=== PATIENT | male | born 1980 | race Hispanic/Latino ===

== ENCOUNTER → 2017-05-19 | Outpatient (CLI) | payer OTHER ==
--- NOTE | 2017-05-20 20:22 | Diagnostic Imaging Report ---
PROCEDURE: US Abdomen, limited. TECHNIQUE: Multiple real-time grayscale images were obtained over the abdomen in various projections. INDICATION: Abdominal pain, palpable mass. FINDINGS: To the left of the umbilicus about 12 cm there is an area of palpable lump which appears to be centered in the subcutaneous fat measuring 2.6 x 1.3 x 4.1 cm with hyperechoic slightly heterogeneous smoothly-marginated lesion seen with mild internal vascularity. There is another lesion measuring 1.8 x 0.9 x 2.1 cm with similar overall appearance although more homogeneous. IMPRESSION: Within the anterior abdominal wall to the left of the umbilicus there are two circumscribed lesions that appear to be centered within the subcutaneous fat layer. These could relate to a lipoma or focal inflammation/fat necrosis. Correlate clinically and with follow-up CT scan or MRI if symptoms persist or worsen. Dictated by: Dictated on workstation # [id number]
== END ==
LOC: RAD 09:33
PROVIDERS: ATTEND Family Medicine
DX: R10.32 Left lower quadrant pain (principal); R19.04 Left lower quadrant abdominal swelling, mass and lump
CPT/HCPCS: 76705